=== PATIENT | female | born 1975 | race Caucasian/White ===

== ENCOUNTER 2017-04-03 14:49 | Emergency (ER) | payer MEDICAID ==
[~2017-04-03] VITALS: Ht 154.9 cm; Wt 55.8 kg
[2017-04-03] MEDS ORDERED: HYDROmorphone 1 mg/ml syringe IV ONE (15:25)
[2017-04-03] MEDS ORDERED: diphenhydrAMINE 50 mg/ml inj IV ONE (15:25)
[2017-04-03 15:42] LABS: BASOPHILS % (AUTO) 0.4 % (0-1); EOSINOPHILS # (AUTO) 0.2 X10'3 (0-0.9); EOSINOPHILS % (AUTO) 1.4 % (0-6); HEMATOCRIT 30.7 % (35.0-45.0); HEMOGLOBIN 10.7 g/dl (12.0-16.0); LYMPHOCYTES # (AUTO) 2.7 X10'3 (1.1-4.8); LYMPHOCYTES % (AUTO) 24.3 % (21-51); MEAN CORPUSCULAR HEMOGLOBIN 28.1 PG (27.0-31.0); MEAN CORPUSCULAR HGB CONC 34.8 % (33.0-36.5); MEAN PLATELET VOLUME 7.1 FL (7.4-10.4); MONOCYTES # (AUTO) 1.1 X10'3 (0-0.9); MONOCYTES % (AUTO) 9.4 % (2-12); NEUTROPHILS # (AUTO) 7.2 X10'3 (1.8-7.7); NEUTROPHILS % (AUTO) 64.5 % (42-75); PLATELET COUNT 413 X10'3 (140-440); RED BLOOD COUNT 3.79 X10'6 (4.20-5.60); RED CELL DISTRIBUTION WIDTH 18.4 % (11.5-14.5); WHITE BLOOD COUNT 11.2 X10'3 (4.5-11.0)
[2017-04-03 15:48] LABS: INR 0.9 INR; PARTIAL THROMBOPLASTIN TIME 31 SECONDS (22-32); PROTHROMBIN TIME 9.4 SECONDS (9.0-12.0)
[2017-04-03 15:53] LABS: ALANINE AMINOTRANSFERASE 36 U/L (12-78); ALBUMIN 2.9 G/DL (3.4-5.0); ALBUMIN/GLOBULIN RATIO 0.5 (1.1-1.5); ALKALINE PHOSPHATASE 111 IU/L (46-116); ANION GAP 8 (8-16); ASPARTATE AMINO TRANSFERASE 25 U/L (10-37); BILIRUBIN,TOTAL 0.2 MG/DL (0.1-1.0); BLOOD UREA NITROGEN 16 MG/DL (7-18); BUN/CREATININE RATIO 21.6 (6.6-38.0); CHLORIDE 101 MMOL/L (99-107); CREATININE 0.74 MG/DL (0.40-0.90); GLUCOSE 94 MG/DL (70-104); SODIUM 139 MMOL/L (135-145); TOTAL CARBON DIOXIDE 29.9 MMOL/L (24-32); TOTAL PROTEIN 8.4 G/DL (6.4-8.2); eGFR 87 ML/MIN
[2017-04-03 16:17] LABS: LIPASE 171 U/L (73-393)
[2017-04-03 16:18] LABS: HCG SERUM QL NEGATIVE
[2017-04-03] MEDS ORDERED: normal saline 1000ML IV soln IVB ONE (19:20)
[2017-04-03 20:19] LABS: CLARITY,URINE Clear (Clear); COLOR,URINE Yellow (Yellow); GLUCOSE, URINE Negative (Neg); KETONES,URINE Negative (Neg); LEUKOCYTE ESTERASE ,URINE Small (Neg); NITRITES, URINE Negative (Neg); OCCULT BLOOD,URINE Negative (Neg); PROTEIN,URINE Negative (Neg); UROBILINOGEN,URINE 0.2 E.U/dL (0.2-1.0)
[2017-04-03 20:25] LABS: UA COLLECTION TYPE CLN CATCH MIDSTREAM
[2017-04-03 20:28] LABS: BACTERIA,URINE 4+ /HPF (Neg); RBC,URINE 0-2 /HPF (0-2); SQUAMOUS EPITHELIAL CELL,UR MANY /LPF (FEW); WBC,URINE 0-4 /HPF (0-4)
[2017-04-03 20:30] LABS: URINE AMPHETAMINE SCREEN NEGATIVE (Neg); URINE BARBITUATE SCREEN NEGATIVE (Neg); URINE BENZODIAZEPINES SCREEN NEGATIVE (Neg); URINE CANNABINOID SCREEN NEGATIVE (Neg); URINE COCAINE SCREEN NEGATIVE (Neg); URINE METHADONE SCREEN NEGATIVE (Neg); URINE OPIATE SCREEN POSITIVE (Neg); URINE PHENCYCLIDINE SCREEN NEGATIVE (Neg)
[2017-04-03 21:20] VITALS: BP 105/72
== END 2017-04-03 21:29 | disposition home or self-care (01) ==
LOC: ER 14:50
DX: R10.9 Unspecified abdominal pain (principal); F17.200 Nicotine dependence, unspecified, uncomplicated
CPT/HCPCS: 36415; 71045; 80053; 80305; 81001; 83690; 84484; 84703; 85025; 85610; 85730; 87502; 87503; 93005; 96374; 96375; 99285; J1170; J1200; J7030

== ENCOUNTER 2021-07-06 15:56 | Inpatient (IN) | payer MEDICAID ==
[~2021-07-06] VITALS: Ht 154.9 cm; Wt 51.0 kg
[2021-07-06] MEDS ORDERED: normal saline 1000ml 1,000 ML IV ONE (18:40)
[2021-07-06] MEDS ORDERED: ondansetron/PF 4mg/2ml inj IV ONE (18:40)
[2021-07-06] MEDS ORDERED: cefTRIAXone 1g/NS 100ml IVPB 100 ML IV ONE (19:20)
[2021-07-06 19:35] LABS: BASOPHILS % (AUTO) 0.2 % (0-1); EOSINOPHILS # (AUTO) 0.2 X10'3 (0-0.9); EOSINOPHILS % (AUTO) 0.8 % (0-6); HEMATOCRIT 34.2 % (35.0-45.0); HEMOGLOBIN 11.3 g/dl (12.0-16.0); LYMPHOCYTES # (AUTO) 0.9 X10'3 (1.1-4.8); LYMPHOCYTES % (AUTO) 4.4 % (21-51); MEAN CORPUSCULAR HEMOGLOBIN 27.1 PG (27.0-31.0); MEAN CORPUSCULAR HGB CONC 32.9 g/dL (33.0-36.5); MEAN CORPUSCULAR VOLUME 82.6 FL (78-98); MEAN PLATELET VOLUME 7.8 FL (7.4-10.4); MONOCYTES # (AUTO) 0.8 X10'3 (0-0.9); MONOCYTES % (AUTO) 3.7 % (2-12); NEUTROPHILS # (AUTO) 19.2 X10'3 (1.8-7.7); NEUTROPHILS % (AUTO) 90.9 % (42-75); PLATELET COUNT 73 X10'3 (140-440); RED BLOOD COUNT 4.15 X10'6 (4.20-5.60); RED CELL DISTRIBUTION WIDTH 15.8 % (11.5-14.5); WHITE BLOOD COUNT 21.2 X10'3 (4.5-11.0)
[2021-07-06 19:44] LABS: ALANINE AMINOTRANSFERASE 963 U/L (12-78); ALBUMIN 2.2 G/DL (3.4-5.0); ALBUMIN/GLOBULIN RATIO 0.5 (1.1-1.5); ALKALINE PHOSPHATASE 146 IU/L (46-116); ANION GAP 9 (8-16); ASPARTATE AMINO TRANSFERASE 979 U/L (10-37); BILIRUBIN,TOTAL 1.2 MG/DL (0.1-1.0); BLOOD UREA NITROGEN 21 MG/DL (7-18); BUN/CREATININE RATIO 26.3 (6.6-38.0); CALCIUM 8.2 MG/DL (8.5-10.1); CHLORIDE 102 MMOL/L (99-107); GLUCOSE 107 MG/DL (70-104); POTASSIUM 3.2 MMOL/L (3.5-5.1); SODIUM 135 MMOL/L (135-145); TOTAL PROTEIN 6.3 G/DL (6.4-8.2); eGFR 78 ML/MIN
[2021-07-06 19:53] LABS: BETA HCG,QUANTITATIVE 4 mIU/ml; MAGNESIUM 2.1 MG/DL (1.5-2.4)
[2021-07-06] MEDS ORDERED: azithromycin/NS 500mg/250ml 250 ML IV ONE (19:55)
[2021-07-06 20:57] LABS: ACETAMINOPHEN 22.9 UG/ML (10-30)
[2021-07-06] MEDS ORDERED: temazepam 15mg capsule PO PRN (21:00)
[2021-07-06] MEDS ORDERED: DEXTROSE 5% IV ONE ×2 (21:25→23:00)
[2021-07-06] MEDS ORDERED: ACETYLCYSTEINE IV ONE ×2 (21:25→23:00)
[2021-07-06] MEDS ORDERED: WATER IV ONE ×2 (21:25→23:00)
[2021-07-06] MEDS ORDERED: morphine 2 MG/ML inj. syringe IV PRN ×2 (21:55)
[2021-07-06] MEDS ORDERED: HYDROmorphone inj. 0.5 MG/0.5 ML DISP.SYRIN IV PRN (21:55)
[2021-07-06] MEDS ORDERED: magnesium hydroxide 30ml (MOM) UD suspension PO PRN (21:55)
[2021-07-06] MEDS ORDERED: acetaminophen 650mg rectal suppository RC PRN (21:55)
[2021-07-06] MEDS ORDERED: diphenhydrAMINE 50 mg/ml inj IV PRN (21:55)
[2021-07-06] MEDS ORDERED: acetaminophen 325mg tablet PO PRN ×2 (21:55)
[2021-07-06] MEDS ORDERED: HYDROcodone/acetaminophen 5mg/325mg tablet PO PRN (21:55)
[2021-07-06] MEDS ORDERED: bisacodyl 10mg suppository rectal RC PRN (21:55)
[2021-07-06] MEDS ORDERED: mag hydrox/Alum hydrox/simeth 30ml oral suspension PO PRN (21:55)
[2021-07-06] MEDS ORDERED: ipratropium/albuterol 3ml nebule NEB PRN (21:55)
[2021-07-06] MEDS ORDERED: HYDROcodone/acetaminophen 10/325mg tab PO PRN (21:55)
[2021-07-06] MEDS ORDERED: ondansetron 4mg rapidly disintigrating tab PO PRN (21:55)
[2021-07-06] MEDS ORDERED: dextrose 5%-1/2 normal saline 1,000 ML IV SCH (21:55)
[2021-07-06] MEDS ORDERED: ondansetron/PF 4mg/2ml inj IV PRN (21:55)
[2021-07-06] MEDS ORDERED: diphenhydrAMINE 25mg capsule PO PRN (21:55)
[2021-07-06] MEDS ORDERED: magnesium Cl slow-release 64mg tablet PO PRN (22:05)
[2021-07-06] MEDS ORDERED: potassium Cl 20 mEq SR tablet PO PRN ×2 (22:05)
[2021-07-06] MEDS ORDERED: potassium CL 10mEq/100ml bag 100 ML IV PRN (22:05)
[2021-07-06] MEDS ORDERED: magnesium 4gm in 100ml NS 100 ML IV PRN (22:05)
[2021-07-06] MEDS ORDERED: magnesium 2GM in 50ml NS 50 ML IV PRN (22:05)
[2021-07-06 22:21] LABS: HEMOGLOBIN A1C 5.7 % (4.5-6.2)
[2021-07-06 22:47] LABS: CREATINE KINASE 30 U/L (26-192); LIPASE 94 U/L (73-393); PHOSPHORUS 3.8 MG/DL (2.3-4.5); POTASSIUM 3.5 MMOL/L (3.5-5.1)
--- NOTE | 2021-07-07 00:03 | NUR ---
pt stated that she took approximately 20 pills of acetaminophen at 500 mg a pill. called poison control at 2000 hours and followed poison control orders. keeping in close contact with poison control and going to call back with any critical values pertaining to the overdose. pt states she took the medication for pain and was not trying to self harm.
[2021-07-07] MEDS ORDERED: NO HOME MEDS (01:51)
--- NOTE | 2021-07-07 01:55 | NUR ---
pt's primary RN on break. PT REQUESTED TO USE BATHROOM. PT BACK NOW FROM BATHROOM AND BACK IN BED AND ON THE MONITOR. FLUIDS RUNNING PRESCRIBED. PT ALERT AND ORIENTED BUT DIFFICULT TO UNDERSTAND HER VOICE IS HOARSE "FROM COUGHING EARLIER". AIRWAY PATENT AND PT BREATHING WITHOUT DIFFICULTY. SPO2 ABOVE 97% ON RA.
[2021-07-07] MEDS ORDERED: ACETYLCYSTEINE IV ONE (03:00)
[2021-07-07] MEDS ORDERED: WATER IV ONE (03:00)
[2021-07-07] MEDS ORDERED: DEXTROSE 5% IV ONE (03:00)
--- NOTE | 2021-07-07 04:41 | NUR ---
PT REFUSED THE EKG FOR MONITOR CHANGES THAT SHOW SINUS TACHYCARDIA. SHE ALSO REFUSED TO RECEIVE HER PAIN MEDICATION FOR HER RIB AND BACK PAIN. PT IS STARTING TO TALK ABOUT GOING AMA. CONTINUING TO EDUCATE PT ON POSSIBLE RISKS IN LEAVING IN HER CURRENT STATE.
[2021-07-07] MEDS ORDERED: normal saline 500ml IV soln 500 ML IV SCH (04:45)
[2021-07-07 04:50] LABS: BASOPHILS # (AUTO) 0.1 X10'3 (0-0.2); BASOPHILS % (AUTO) 0.4 % (0-1); EOSINOPHILS # (AUTO) 0.1 X10'3 (0-0.9); EOSINOPHILS % (AUTO) 0.4 % (0-6); HEMATOCRIT 36.2 % (35.0-45.0); HEMOGLOBIN 11.9 g/dl (12.0-16.0); LYMPHOCYTES # (AUTO) 0.8 X10'3 (1.1-4.8); LYMPHOCYTES % (AUTO) 4.4 % (21-51); MEAN CORPUSCULAR HEMOGLOBIN 27.1 PG (27.0-31.0); MEAN CORPUSCULAR HGB CONC 32.9 g/dL (33.0-36.5); MEAN CORPUSCULAR VOLUME 82.6 FL (78-98); MEAN PLATELET VOLUME 7.5 FL (7.4-10.4); MONOCYTES # (AUTO) 0.7 X10'3 (0-0.9); MONOCYTES % (AUTO) 3.8 % (2-12); NEUTROPHILS # (AUTO) 16.7 X10'3 (1.8-7.7); PLATELET COUNT 55 X10'3 (140-440); RED BLOOD COUNT 4.38 X10'6 (4.20-5.60); RED CELL DISTRIBUTION WIDTH 15.8 % (11.5-14.5); WHITE BLOOD COUNT 18.4 X10'3 (4.5-11.0)
--- NOTE | 2021-07-07 05:00 | NUR ---
PT WAS TOLD TO GIVE A URINE SAMPLE WHEN SHE WENT TO THE BATHROOM TO URINATE. PT VERBALIZED UNDERSTANDING YET DID NOT FILL UP THE URINE CUP FOR LAB
[2021-07-07 05:09] LABS: ALBUMIN 1.8 G/DL (3.4-5.0); ALBUMIN/GLOBULIN RATIO 0.5 (1.1-1.5); ALKALINE PHOSPHATASE 146 IU/L (46-116); ANION GAP 10 (8-16); BILIRUBIN,TOTAL 0.8 MG/DL (0.1-1.0); BLOOD UREA NITROGEN 16 MG/DL (7-18); BUN/CREATININE RATIO 19.8 (6.6-38.0); CALCIUM 7.2 MG/DL (8.5-10.1); CHLORIDE 98 MMOL/L (99-107); CHOL/HDL RATIO 6.8 (0.00-4.99); CHOLESTEROL 75 MG/DL (0-200); CREATININE 0.81 MG/DL (0.40-0.90); GLUCOSE 145 MG/DL (70-104); HDL CHOLESTEROL 11 MG/DL (35-60); LDL CHOLESTEROL 33 MG/DL (50-100); MAGNESIUM 1.9 MG/DL (1.5-2.4); POTASSIUM 3.2 MMOL/L (3.5-5.1); SODIUM 132 MMOL/L (135-145); TOTAL CARBON DIOXIDE 23.8 MMOL/L (24-32); TOTAL PROTEIN 5.6 G/DL (6.4-8.2); TRIGLYCERIDES 79 MG/DL (20-135); eGFR 77 ML/MIN
[2021-07-07] MEDS ORDERED: normal saline 500ml IV soln 500 ML IV ONE (05:40)
[2021-07-07 05:49] LABS: ALANINE AMINOTRANSFERASE 3738 U/L (12-78); ASPARTATE AMINO TRANSFERASE 4486 U/L (10-37)
[2021-07-07 06:10] VITALS: BP 115/68
--- NOTE | 2021-07-07 06:47 | NUR ---
Yelling heard throughout department. Patient states "I want to fucking leave, you guys have been keeping me here all night, I can't breathe and I want to fucking go..." primary RN Logan aware patient wanted to leave AMA last night per RN solange and patient was educated on risks of leaving AMA that include possible . All labs reviewed with patient, and patient reminded patient leaving AMA may lead to . Patient yelling over staff stating "get these fucking IV's out of me". Hospitalist paged, patient read aloud the AMA form and agreed to sign it, patient safely escorted off of unit with all belongings in hand.
[2021-07-07] MEDS ORDERED: pantoprazole 40mg Tablet.DR PO SCH (07:30)
[2021-07-07] MEDS ORDERED: K and/or MAG REPLACEMENT MC SCH (08:00)
[2021-07-07] MEDS ORDERED: heparin, porcine 5000 units/ml vial SQ SCH (08:00)
[2021-07-07] MEDS ORDERED: docusate sod 100mg capsule PO SCH (08:00)
[2021-07-07] MEDS ORDERED: cefTRIAXone 1g/NS 100ml IVPB 100 ML IV SCH (20:00)
[2021-07-07] MEDS ORDERED: azithromycin/NS 500mg/250ml 250 ML IV SCH (22:00)
[2021-07-08 16:40] LABS: HBSAG SCREEN Negative (Negative); HEP A AB, IGM Negative (Negative); HEP B CORE AB, TOT Negative (Negative); HEPATITIS C ANTIBODY >11.0 s/co ratio (0.0-0.9)
== END 2021-07-07 06:55 | disposition left against medical advice (07) | DRG 720 ==
LOC: ER 15:57 → ED HOLD 22:04
PROVIDERS: ADMIT Family Medicine; ATTEND Family Medicine
DX: A41.9 Sepsis, unspecified organism (principal); D69.6 Thrombocytopenia, unspecified; J18.9 Pneumonia, unspecified organism; J90 Pleural effusion, not elsewhere classified; E88.09 Other disorders of plasma-protein metabolism, not elsewhere classified; K73.9 Chronic hepatitis, unspecified; E87.6 Hypokalemia; F15.90 Other stimulant use, unspecified, uncomplicated; F31.9 Bipolar disorder, unspecified; F41.9 Anxiety disorder, unspecified; Z53.29 Procedure and treatment not carried out because of patient's decision for other reasons; Z56.0 Unemployment, unspecified; Z59.00 Homelessness unspecified
CPT/HCPCS: 36415; 71045; 80053; 80061; 80329; 82550; 83036; 83605; 83690; 83735; 83880; 84100; 84132; 84145; 84443; 84484; 84702; 85025; 85610; 86704; 86705; 86706; 86709; 86803; 87340; 93005; 94760; 99285; G0378; J0132; J0456; J0696; J1170; J2270; J2405; J7030; J7042; J7060; J7070

== ENCOUNTER 2021-07-20 18:48 | Emergency (ER) | payer MEDICAID ==
[~2021-07-20] VITALS: Ht 154.9 cm; Wt 59.1 kg
[~2021-07-20 18:48] MED LIST: NO HOME MEDS
[2021-07-20] MEDS ORDERED: AMOX-100 PO (21:27)
[2021-07-20] MEDS ORDERED: AZIT250T2 PO (21:27)
[2021-07-20] MEDS ORDERED: amoxicillin 250mg capsule PO ONE (21:30)
[2021-07-20 21:37] LABS: CLARITY,URINE SLIGHTLY CLOUDY (Clear); COLOR,URINE YELLOW (Yellow); GLUCOSE, URINE NEGATIVE (Neg); KETONES,URINE NEGATIVE (Neg); LEUKOCYTE ESTERASE ,URINE NEGATIVE (Neg); NITRITES, URINE NEGATIVE (Neg); OCCULT BLOOD,URINE NEGATIVE (Neg); PROTEIN,URINE TRACE mg/dl (Neg); UROBILINOGEN,URINE 0.2 E.U/dL (0.2-1.0)
[2021-07-20 21:39] LABS: UA COLLECTION TYPE NON-SPECIFIED
[2021-07-20 21:45] LABS: BACTERIA,URINE 1+ /HPF (Neg); MUCUS STRANDS FEW /LPF (Neg); SQUAMOUS EPITHELIAL CELL,UR MANY /LPF (FEW)
[2021-07-20 21:47] VITALS: BP 129/81
== END 2021-07-20 22:03 | disposition home or self-care (01) ==
LOC: ER 18:48
DX: J18.9 Pneumonia, unspecified organism (principal); R07.81 Pleurodynia; F15.90 Other stimulant use, unspecified, uncomplicated; Z56.0 Unemployment, unspecified; Z59.00 Homelessness unspecified; Z79.2 Long term (current) use of antibiotics; Z79.899 Other long term (current) drug therapy; W19.XXXA Unspecified fall, initial encounter; Y93.89 Activity, other specified; Y92.89 Other specified places as the place of occurrence of the external cause; Y99.8 Other external cause status
CPT/HCPCS: 71045; 81001; 99284

== ENCOUNTER 2021-08-05 15:28 | Emergency (ER) | payer MEDICAID ==
[~2021-08-05] VITALS: Ht 154.9 cm; Wt 56.8 kg
[2021-08-05 16:05] VITALS: BP 119/72
[2021-08-05] MEDS ORDERED: ALBU6.7H9 INH (17:03)
[2021-08-05] MEDS ORDERED: PRED20TA PO (17:03)
[2021-08-05 17:56] LABS: BASOPHILS # (AUTO) 0.1 X10'3 (0-0.2); BASOPHILS % (AUTO) 0.6 % (0-1); EOSINOPHILS # (AUTO) 0.1 X10'3 (0-0.9); EOSINOPHILS % (AUTO) 1.2 % (0-6); HEMATOCRIT 29.9 % (35.0-45.0); HEMOGLOBIN 10.1 g/dl (12.0-16.0); LYMPHOCYTES # (AUTO) 3.1 X10'3 (1.1-4.8); LYMPHOCYTES % (AUTO) 30.5 % (21-51); MEAN CORPUSCULAR HEMOGLOBIN 26.9 PG (27.0-31.0); MEAN CORPUSCULAR HGB CONC 33.7 g/dL (33.0-36.5); MEAN CORPUSCULAR VOLUME 79.9 FL (78-98); MEAN PLATELET VOLUME 6.2 FL (7.4-10.4); MONOCYTES # (AUTO) 0.7 X10'3 (0-0.9); MONOCYTES % (AUTO) 7.2 % (2-12); NEUTROPHILS # (AUTO) 6.1 X10'3 (1.8-7.7); NEUTROPHILS % (AUTO) 60.5 % (42-75); PLATELET COUNT 491 X10'3 (140-440); RED BLOOD COUNT 3.75 X10'6 (4.20-5.60); RED CELL DISTRIBUTION WIDTH 15.5 % (11.5-14.5); WHITE BLOOD COUNT 10.1 X10'3 (4.5-11.0)
[2021-08-05 18:12] LABS: ALANINE AMINOTRANSFERASE 15 U/L (12-78); ALBUMIN 2.5 G/DL (3.4-5.0); ALBUMIN/GLOBULIN RATIO 0.4 (1.1-1.5); ALKALINE PHOSPHATASE 86 IU/L (46-116); ANION GAP 8 (8-16); ASPARTATE AMINO TRANSFERASE 18 U/L (10-37); BILIRUBIN,TOTAL 0.2 MG/DL (0.1-1.0); BLOOD UREA NITROGEN 11 MG/DL (7-18); BUN/CREATININE RATIO 15.9 (6.6-38.0); CALCIUM 8.6 MG/DL (8.5-10.1); CHLORIDE 99 MMOL/L (99-107); CREATININE 0.69 MG/DL (0.40-0.90); GLUCOSE 92 MG/DL (70-104); POTASSIUM 3.9 MMOL/L (3.5-5.1); SODIUM 134 MMOL/L (135-145); TOTAL CARBON DIOXIDE 27.4 MMOL/L (24-32); TOTAL PROTEIN 8.7 G/DL (6.4-8.2); eGFR > 90 ML/MIN
== END 2021-08-05 18:47 | disposition home or self-care (01) ==
LOC: ER 15:29
DX: J45.909 Unspecified asthma, uncomplicated (principal); J90 Pleural effusion, not elsewhere classified; Z87.01 Personal history of pneumonia (recurrent); F15.90 Other stimulant use, unspecified, uncomplicated; F17.210 Nicotine dependence, cigarettes, uncomplicated; Z56.0 Unemployment, unspecified; Z59.00 Homelessness unspecified; Z79.899 Other long term (current) drug therapy
CPT/HCPCS: 36415; 71046; 80053; 84145; 85025; 99284